=== PATIENT | male | born 1985 | race Two or more races ===

== ENCOUNTER 2024-07-10 01:53 | Emergency (ER) | payer MEDICAID, OTHER ==
[~2024-07-10] VITALS: Ht 165.1 cm; Wt 59.0 kg
[2024-07-10 02:25] VITALS: BP 120/58; TEMP 97.9
[2024-07-10] MEDS ORDERED: DIATR MEGLU/DIATRIZOATE SODIUM 30 ML BOTTLE (GASTROGRAPHIN) ONE (02:25)
[2024-07-10 02:50] VITALS: O2SAT 94
== END 2024-07-10 03:40 ==
LOC: ER 02:03
DX: K94.29 Other complications of gastrostomy (principal)
CPT/HCPCS: 99284; 43762; 74018; Q9963